=== PATIENT | male | born 1980 | race Caucasian/White ===

== ENCOUNTER 2022-12-15 01:56 | Emergency (ER) | payer BC, OTHER ==
[2022-12-15] MEDS ORDERED: Acetaminophen 500 MG Tab PO ONE (02:26)
[2022-12-15] MEDS ORDERED: Ketorolac 30 MG/ML SDV IM ONE (02:26)
[2022-12-15] MEDS ORDERED: Metoclopramide 10 MG Tab PO ONE (02:29)
[2022-12-15] MEDS ORDERED: diphenhydrAMINE 50 MG Cap PO ONE (02:30)
[2022-12-15] MEDS ORDERED: Dexamethasone 4 MG/ML 5 ML MDV IM ONE (02:36)
[2022-12-15] MEDS: Cyclobenzaprine 10 MG Tab PO ONE ×2 (02:48→03:01)
== END 2022-12-15 03:32 | disposition home or self-care (01) ==
LOC: FB.ED 01:56
DX: M54.12 Radiculopathy, cervical region (principal); R51.9 Headache, unspecified; Z87.39 Personal history of other diseases of the musculoskeletal system and connective tissue
CPT/HCPCS: 96372; 99283; A9270-GY; J1100; J1885